=== PATIENT | male | born 1970 | race Hispanic/Latino ===

== ENCOUNTER 2024-10-20 16:11 | Emergency (ER) | payer OTHER ==
[~2024-10-20] VITALS: Ht 165.1 cm; Wt 73.9 kg
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
[2024-10-20] MEDS ORDERED: NAPR-1194 PO (16:52)
[2024-10-20 17:07] VITALS: BP 147/75; PULSE 76; RESP 18; TEMP 97.9; O2SAT 96
== END 2024-10-20 17:09 | disposition home or self-care (01) ==
LOC: EDH 16:11
DX: S60.041A Contusion of right ring finger without damage to nail, initial encounter (principal); V89.0XXA Person injured in unspecified motor-vehicle accident, nontraffic, initial encounter; Y93.89 Activity, other specified; Y92.89 Other specified places as the place of occurrence of the external cause; Y99.8 Other external cause status
CPT/HCPCS: 99283; 96372; J1885